=== PATIENT | female | born 1995 | race Two or more races ===

== ENCOUNTER 2024-04-04 02:43 | Emergency (ER) | payer MEDICAID ==
[~2024-04-04] VITALS: Ht 165.1 cm; Wt 102.3 kg
[2024-04-04 02:45] VITALS: TEMP 97.7
[2024-04-04] MEDS: SODIUM CHLORIDE 0.9% 1,000 ML IV ONE (03:39)
[2024-04-04] MEDS: FAMOTIDINE 20 MG/2 ML VIAL IVP ONE (03:43)
[2024-04-04] MEDS: METOCLOPRAMIDE HCL 5 MG/ML 2 ML VIAL IVP ONE (03:43)
[2024-04-04] MEDS: MORPHINE SULFATE 2 MG/ML SYRINGE IVP ONE (03:44)
[2024-04-04 03:54] LABS: BASOPHILS % (AUTO) 0.7 % (0.0-2.0); EOSINOPHILS % (AUTO) 1.4 % (1.0-6.0); HEMATOCRIT 40.7 % (36-46); HEMOGLOBIN 13.3 g/dL (12.0-16.0); LYMPHOCYTES # (AUTO) 2.7 K/uL (1.0-4.8); LYMPHOCYTES % (AUTO) 31.8 % (22.0-44.0); MEAN CORPUSCULAR HEMOGLOBIN 27.1 pg (26.0-34.0); MEAN CORPUSCULAR HGB CONC 32.6 G/dL (31.0-37.0); MEAN CORPUSCULAR VOLUME 83 fL (80-100); MONOCYTES # (AUTO) 0.4 K/uL (0.1-1.0); MONOCYTES % (AUTO) 4.6 % (2.0-9.0); NEUTROPHILS # (AUTO) 5.3 K/uL (1.8-7.7); NEUTROPHILS % (AUTO) 61.5 % (40.0-70.0); PLATELET COUNT (AUTO) 192 K/uL (150-450); RED CELL DISTRIBUTION WIDTH 13.3 % (11.5-14.5); WHITE BLOOD COUNT (AUTO) 8.6 K/uL (4.5-11.0)
[2024-04-04 04:05] LABS: ANION GAP 6 mmol/L (8-16); CALCIUM, TOTAL 8.6 mg/dL (8.8-10.5); CARBON DIOXIDE 29 mmol/L (22-29); CHLORIDE 102 mmol/L (98-107); CREATININE 0.79 mg/dL (0.60-1.30); GLOMERULAR FILTR. RATE CALC > 60 mL/min (>60); GLUCOSE,RANDOM 145 mg/dL (70-110); POTASSIUM 3.7 mmol/L (3.5-5.1); SODIUM SERUM 137 mmol/L (136-145); UREA NITROGEN, BLOOD 12 mg/dL (7-18)
[2024-04-04 04:12] LABS: ALANINE AMINOTRANSFERASE 21 U/L (12-78); ALBUMIN 3.5 g/dL (3.4-5.0); ALKALINE PHOSPHATASE 52 U/L (46-116); ASPARTATE AMINOTRANSFERASE 18 U/L (15-37); BILIRUBIN,TOTAL 0.9 mg/dL (0.1-1.0); LIPASE 46 U/L (16-77); TOTAL PROTEIN, SERUM 7.1 g/dL (6.4-8.2)
[2024-04-04] MEDS ORDERED: FAMO20 PO (05:15)
[2024-04-04] MEDS ORDERED: ONDA-104 PO (05:16)
[2024-04-04 05:57] VITALS: BP 119/66; PULSE 66; RESP 16; O2SAT 98
== END 2024-04-04 06:04 | disposition home or self-care (01) ==
LOC: EMS 02:43
DX: K80.50 Calculus of bile duct without cholangitis or cholecystitis without obstruction (principal)
CPT/HCPCS: 99285; 96374; 76705; 96375; 96361; 80048; 80076; 83690; 84703; 85025; 36415; 93005; J3490; J2765; J2270; J7030